=== PATIENT | female | born 1995 | race African-American/Black ===

== ENCOUNTER 2021-03-27 17:42 | Emergency (ER) | payer SELFPAY ==
[2021-03-27 17:52] VITALS: BP 107/70; PULSE 95; TEMP 98.3; BMI 25.0
[2021-03-27] MEDS ORDERED: KETOROLAC TROMETHAMINE 30 MG/1 ML VIAL IM ONE (18:22)
[2021-03-27] MEDS ORDERED: METOCLOPRAMIDE HCL 10 MG TABLET (FP) PO ONE ×2 (18:22→18:25)
[2021-03-27] MEDS ORDERED: KETOROLAC TROMETHAMINE 30 MG/1 ML VIAL ONE (18:25)
== END 2021-03-27 18:34 | disposition home or self-care (01) ==
LOC: JERFT 17:42 → JER 17:42 → JERFT 18:34
PROC: 3E0233Z Introduction of Anti-inflammatory into Muscle, Percutaneous Approach (ICD-10-PCS; principal; 2021-03-27)
DX: R51.9 Headache, unspecified (principal)
CPT/HCPCS: 99284-25

== ENCOUNTER 2021-07-13 14:47 | Emergency (ER) | payer OTHER ==
[2021-07-13 14:58] VITALS: BP 102/66; PULSE 73; TEMP 98.2; BMI 23.8
[2021-07-13] MEDS ORDERED: DICYCLOMINE HCL 20 MG TABLET PO ONE (15:47)
[2021-07-13] MEDS ORDERED: SODIUM CHLORIDE 1,000 ML IV STA (15:47)
[2021-07-13] MEDS ORDERED: MAG HYDROX/AL HYDROX/SIMETH 30 ML UNIT-DOSE CUP PO ONE (15:47)
[2021-07-13] MEDS ORDERED: ACETAMINOPHEN 1000 MG/100 ML BAG IVPB ONE (15:47)
[2021-07-13] MEDS ORDERED: ACETAMINOPHEN 500 MG TABLET (FP) PO ONE (16:06)
[2021-07-13] MEDS ORDERED: MAG HYDROX/AL HYDROX/SIMETH 30 ML UNIT-DOSE CUP ONE (16:09)
[2021-07-13] MEDS ORDERED: DICYCLOMINE HCL 10 MG CAPSULE ONE (16:09)
[2021-07-13] MEDS ORDERED: ACETAMINOPHEN 500 MG TABLET (FP) ONE (16:12)
[2021-07-13 16:21] LABS: BASO % 0.7 % (0-2.0); EOS % 2.1 % (0-4.5); HEMOGLOBIN 11.8 GM/dL (10.7-15.3); LYMPH % 39.9 % (8-40); MCH 29.8 pg (25.7-33.7); MCHC 33.7 g/dl (32.0-36.0); MEAN CELL VOLUME 88.3 fl (80-96); MEAN PLT VOLUME 8.6 fl (7.5-11.1); MONO % 5.9 % (3.8-10.2); NEUT % 51.4 % (42.8-82.8); PLATELET COUNT 258 10^3/uL (134-434); RBC 3.96 M/mm3 (3.60-5.2); RDW 13.2 % (11.6-15.6); WHITE BLOOD COUNT 4.5 K/mm3 (4.0-10.0)
[2021-07-13 16:23] LABS: PH,URINE 5.5 (5.0-8.0); URINE APPEARANCE CLEAR; URINE BILIRUBIN NEGATIVE (NEGATIVE); URINE COLOR YELLOW; URINE GLUCOSE (UA) NEGATIVE (NEGATIVE); URINE KETONE NEGATIVE (NEGATIVE); URINE LEUK ESTERASE NEGATIVE (NEGATIVE); URINE NITRITE NEGATIVE (NEGATIVE); URINE PROTEIN NEGATIVE (NEGATIVE); URINE UROBILINOGEN 0.2 mg/dL (0.2-1.0)
[2021-07-13 16:26] LABS: HCG,QUALITATIVE URINE Negative
[2021-07-13 16:42] LABS: CALCIUM 9.5 mg/dL (8.5-10.1)
[2021-07-13 16:43] LABS: ALBUMIN 4.1 g/dl (3.4-5.0); BLOOD UREA NITROGEN 9.9 mg/dL (7-18)
[2021-07-13 16:46] LABS: CREATININE 0.7 mg/dL (0.55-1.3)
[2021-07-13 16:47] LABS: BILIRUBIN,TOTAL 0.5 mg/dL (0.2-1); TOT PROT 7.5 g/dl (6.4-8.2)
[2021-07-13 16:49] LABS: EPI CELLS >36 /uL (0-25.1); HYALINE CASTS 4 /uL (0-3.1); URINE BACTERIA 1136 /uL (0-1359); URINE RBC 2 /uL (0-23.9); URINE WBC 8 /uL (0-25.8)
== END 2021-07-13 18:15 | disposition home or self-care (01) ==
LOC: JERFT 14:47
PROC: 3E0337Z Introduction of Electrolytic and Water Balance Substance into Peripheral Vein, Percutaneous Approach (ICD-10-PCS; principal; 2021-07-13)
DX: R10.13 Epigastric pain (principal)
CPT/HCPCS: 36415; 76705-TC; 80053; 81003; 83690; 84703; 85025; 87086; 99284-25

== ENCOUNTER 2021-08-25 00:06 | Emergency (ER) | payer OTHER ==
[2021-08-25 01:00] VITALS: BP 107/72; PULSE 71; TEMP 98; BMI 23.3
[2021-08-25] MEDS ORDERED: METOCLOPRAMIDE HCL INJECTION 10 MG/2 ML VIAL IVPUSH ONE (01:24)
[2021-08-25] MEDS ORDERED: ACETAMINOPHEN 325 MG TABLET (FP) PO ONE (01:54)
[2021-08-25] MEDS ORDERED: METOCLOPRAMIDE HCL INJECTION 10 MG/2 ML VIAL ONE (01:54)
[2021-08-25] MEDS ORDERED: METOCLOPRAMIDE HCL INJECTION 10 MG/2 ML VIAL IVPB ONE (02:03)
[2021-08-25 02:16] LABS: BASO % 0.5 % (0-2.0); EOS % 0.6 % (0-4.5); HEMATOCRIT 35.3 % (32.4-45.2); HEMOGLOBIN 11.9 GM/dL (10.7-15.3); LYMPH % 13.8 % (8-40); MCH 29.9 pg (25.7-33.7); MCHC 33.8 g/dl (32.0-36.0); MEAN CELL VOLUME 88.4 fl (80-96); MEAN PLT VOLUME 9.1 fl (7.5-11.1); MONO % 2.8 % (3.8-10.2); NEUT % 82.3 % (42.8-82.8); PLATELET COUNT 242 10^3/uL (134-434); RBC 3.99 M/mm3 (3.60-5.2); WHITE BLOOD COUNT 7.1 K/mm3 (4.0-10.0)
[2021-08-25 02:28] LABS: CALCIUM 8.9 mg/dL (8.5-10.1)
[2021-08-25 02:29] LABS: BLOOD UREA NITROGEN 11.6 mg/dL (7-18)
[2021-08-25 02:32] LABS: CREATININE 0.7 mg/dL (0.55-1.3)
[2021-08-25 02:33] LABS: BILIRUBIN,TOTAL 0.4 mg/dL (0.2-1); TOT PROT 7.7 g/dl (6.4-8.2)
[2021-08-25] MEDS ORDERED: ACETAMINOPHEN 325 MG TABLET (FP) ONE (02:47)
[2021-08-25] MEDS ORDERED: SODIUM CHLORIDE 0.9% 500 ML INFUS.BAG IV ONE (02:54)
== END 2021-08-25 03:47 | disposition home or self-care (01) ==
LOC: JER 00:06
PROC: 3E033GC Introduction of Other Therapeutic Substance into Peripheral Vein, Percutaneous Approach (ICD-10-PCS; principal; 2021-08-25)
DX: R51.9 Headache, unspecified (principal)
CPT/HCPCS: 36415; 80053; 84703; 85025; 99284-25

== ENCOUNTER 2022-02-24 11:51 | Emergency (ER) | payer OTHER ==
[2022-02-24 12:22] VITALS: BP 117/70; PULSE 89; RESP 18; TEMP 98.7; BMI 22.4
[2022-02-24] MEDS ORDERED: IBUPROFEN 600 MG TABLET (FP) PO ONE ×2 (13:12→13:34)
== END 2022-02-24 13:37 | disposition home or self-care (01) ==
LOC: JERFT 11:51
DX: M54.50 Low back pain, unspecified (principal); V79.50XA Passenger on bus injured in collision with unspecified motor vehicles in traffic accident, initial encounter
CPT/HCPCS: 99283-25

== ENCOUNTER 2023-01-01 16:38 | Emergency (ER) | payer OTHER ==
[2023-01-01 16:49] VITALS: BP 109/71; PULSE 64; RESP 17; TEMP 98.3; BMI 29.9
[2023-01-01 17:44] LABS: EPI CELLS >36 /uL (0-25.1); HCG,QUALITATIVE URINE Negative; HYALINE CASTS 2 /uL (0-3.1); PH,URINE 6.5 (5.0-8.0); URINE APPEARANCE CLEAR; URINE BACTERIA 1832 /uL (0-1359); URINE BILIRUBIN NEGATIVE (NEGATIVE); URINE COLOR YELLOW; URINE GLUCOSE (UA) NEGATIVE (NEGATIVE); URINE KETONE NEGATIVE (NEGATIVE); URINE LEUK ESTERASE 3+ (NEGATIVE); URINE NITRITE NEGATIVE (NEGATIVE); URINE PROTEIN NEGATIVE (NEGATIVE); URINE RBC 13 /uL (0-23.9); URINE UROBILINOGEN 0.2 mg/dL (0.2-1.0); URINE WBC 257 /uL (0-25.8)
[2023-01-01 19:40] LABS: YEAST FEW (NEGATIVE)
== END 2023-01-01 17:57 | disposition home or self-care (01) ==
LOC: JER 16:38 → JERFT 16:38
DX: R30.0 Dysuria (principal); L29.2 Pruritus vulvae; N39.0 Urinary tract infection, site not specified; B37.31 Acute candidiasis of vulva and vagina
CPT/HCPCS: 36415; 81003; 84703; 87077; 87086; 87491; 87591; 87661; 99283-25

== ENCOUNTER 2023-03-27 07:50 | Emergency (ER) | payer OTHER ==
[2023-03-27 08:00] VITALS: TEMP 98.2; BMI 23.8
[2023-03-27] MEDS ORDERED: METOCLOPRAMIDE HCL INJECTION 10 MG/2 ML VIAL IVPUSH ONE (09:44)
[2023-03-27] MEDS ORDERED: ACETAMINOPHEN 1000 MG/100 ML BAG IVPB ONE (09:45)
[2023-03-27] MEDS ORDERED: METOCLOPRAMIDE HCL INJECTION 10 MG/2 ML VIAL ONE (09:49)
[2023-03-27] MEDS ORDERED: ACETAMINOPHEN INJECTION 100 ML IVPB ONE (09:49)
[2023-03-27] MEDS: LACTATED RINGERS SOLUTION 1000 ML INFUS.BAG IV ONE ×2 (10:13→10:31)
[2023-03-27 11:15] VITALS: BP 102/62; PULSE 61; RESP 18
== END 2023-03-27 11:15 | disposition home or self-care (01) ==
LOC: JER 07:50
PROC: 3E033NZ Introduction of Analgesics, Hypnotics, Sedatives into Peripheral Vein, Percutaneous Approach (ICD-10-PCS; principal; 2023-03-27)
PROC: 3E033GC Introduction of Other Therapeutic Substance into Peripheral Vein, Percutaneous Approach (ICD-10-PCS; 2023-03-27)
DX: G43.909 Migraine, unspecified, not intractable, without status migrainosus (principal); R42 Dizziness and giddiness; R63.0 Anorexia
CPT/HCPCS: 99284-25; J0131